=== PATIENT | female | born 1975 | race Hispanic/Latino ===

== ENCOUNTER 2018-01-17 14:31 | Emergency (ER) | payer OTHER ==
[2018-01-17] MEDS ORDERED: IBUPROFEN 400 MG TABLET ONE (15:32)
[2018-01-17] MEDS ORDERED: IBUPROFEN 200 MG TAB ONE (15:32)
== END 2018-01-17 16:22 | disposition home or self-care (01) ==
LOC: EDH 14:31
DX: S20.211A Contusion of right front wall of thorax, initial encounter (principal); M54.5 Low back pain; V49.59XA Passenger injured in collision with other motor vehicles in traffic accident, initial encounter; Y93.89 Activity, other specified; Y92.89 Other specified places as the place of occurrence of the external cause; Y99.8 Other external cause status
CPT/HCPCS: 71045

== ENCOUNTER 2018-02-16 20:12 | Emergency (ER) | payer OTHER ==
[2018-02-16 20:38] LABS: APPEARANCE,URINE CLEAR (CLEAR); BILIRUBIN,URINE NEGATIVE (NEGATIVE); COLOR,URINE YELLOW (YELLOW); GLUCOSE, URINE (UA) NEGATIVE (NEGATIVE); KETONES,URINE NEGATIVE (NEGATIVE); LEUKOCYTE ESTERASE ,URINE SMALL (NEGATIVE); NITRATE,URINE NEGATIVE (NEGATIVE); OCCULT BLOOD,URINE SMALL (NEGATIVE); PH,URINE 8.5 (5.0-8.0); PROTEIN,URINE 30 (NEGATIVE)
[2018-02-16 20:40] LABS: HCG,QUAL RESULT NEGATIVE (NEGATIVE)
[2018-02-16 20:44] LABS: BACTERIA,URINE Few /HPF (None Seen)
[2018-02-16] MEDS ORDERED: SODIUM CHLORIDE 0.9% 1000ML 1,000 ML IV ONE (21:11)
[2018-02-16] MEDS ORDERED: ACETAMINOPHEN ELIXIR 650 MG/20.3 ML UDCUP ONE (21:11)
[2018-02-16 21:16] LABS: HEMATOCRIT 38.3 % (36-48); LYMPHOCYTES % (AUTO) 26.2 % (21.0-51.0); MEAN CORPUSCULAR HEMOGLOBIN 31.2 pg (27.0-33.0); MEAN CORPUSCULAR HGB CONC 35.4 g/dL (32.0-36.0); MEAN CORPUSCULAR VOLUME 88.1 fL (79-99); MONOCYTES % (AUTO) 8.1 % (3.0-13.0); NEUTROPHILS % (AUTO) 64.7 % (40.0-77.0); NUCLEATED RED BLOOD CELLS 0.3 % (0.0-0.19); PLATELET COUNT (AUTO) 106 K/uL (130-400); RED BLOOD CELL COUNT(AUTO) 4.35 MIL/uL (4.00-5.50)
[2018-02-16 21:35] LABS: CREATININE 0.8 mg/dL (0.5-1.5); POTASSIUM 3.6 mmol/L (3.5-5.1)
[2018-02-16 21:38] LABS: RAPID GROUP A STREP NEGATIVE (NEGATIVE)
[2018-02-16 21:40] LABS: ALBUMIN 3.6 g/dL (3.5-5.0); BILIRUBIN,TOTAL 0.6 mg/dL (0.2-1.0); TOTAL PROTEIN, SERUM 7.4 g/dL (6.0-8.3)
[2018-02-16] MEDS ORDERED: DOXYCYCLINE HYCLATE 100 MG TABLET PO ONE (22:15)
== END 2018-02-16 22:29 | disposition home or self-care (01) ==
LOC: EDH 20:12
DX: F50.9 Eating disorder, unspecified (principal); R05 Cough; R51 Headache; R11.0 Nausea; M79.1 Myalgia
CPT/HCPCS: 36415; 80053; 81001; 81025; 85025; 86757; 87804 ×2; 87880; 96360; 99284; J7030